=== PATIENT | female | born 2005 | race American Indian/Alaskan Native ===

== ENCOUNTER 2024-01-30 15:00 | Emergency (ER) | payer MEDICAID, OTHER | END 2024-01-30 18:15 | disposition home or self-care (01) | LOC: JD.ED 15:00 | DX: S32.9XXD Fracture of unspecified parts of lumbosacral spine and pelvis, subsequent encounter for fracture with routine healing (principal); V89.2XXD Person injured in unspecified motor-vehicle accident, traffic, subsequent encounter | CPT/HCPCS: 99281; 99283 ==